=== PATIENT | female | born 1990 ===

== ENCOUNTER 2018-06-18 11:00 | Emergency (ER) | payer SELFPAY ==
[2018-06-18 11:16] VITALS: BMI 24.1
[2018-06-18] MEDS ORDERED: Lactated Ringer's 1,000 ML IV ONE (11:57)
[2018-06-18 12:13] LABS: SQUAMOUS EPITHIAL 1 /hpf (0-5); URINE BACTERIA RARE (<OCC); URINE BILIRUBIN NEGATIVE (NEGATIVE); URINE BLOOD NEGATIVE (NEGATIVE); URINE CLARITY Clear (Clear); URINE COLOR Yellow (YELLOW); URINE GLUCOSE (UA) NORMAL (Normal); URINE LEUKOCYTE ESTERASE NEG Leu/uL (Negative); URINE PROTEIN NEGATIVE (NEGATIVE); URINE UROBILINOGEN NORMAL mg/dL (0.2-1.0)
[2018-06-18] MEDS ORDERED: Acetaminophen/Codeine elixir 120-12mg/5ml PO ONE (13:00)
[2018-06-18] MEDS ORDERED: Betamethasone Soluspan 30 mg/5mL Inj Susp IM ONE (13:50)
[2018-06-18 16:10] LABS: SPECIMEN COMMENT CLOUDY
[2018-06-18 18:50] VITALS: BP 94/60; PULSE 63
--- NOTE | 2018-06-18 21:33 | OBHP ---
Datetime: 06/18/2018 11:20 IP Adm Impression: , intrauterine IP Admit Plan: Observation/Evaluation Admit Comment, IP Provider: CC: Sharp lower abdominal pain HPI: Patient is a 27 year old female , with JUAN JOSE (07/25/18) as per first US and LMP (10/18/17), who presents to [facility] with complaint of lower abdominal pain that started at 7:30am, which she descri bes as a sharp constant pain. Patient admits to movement and denies any leakage of fluid, vagin al bleeding, trauma, recent sexual activity. care: [facility], Dr. 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 Ocassional contractions 2. NST Reactive 3. FFN done and sent to [facility] 4- UA negative 5. Probable RL pains and requested pain medication 6. Percocet # 1 given and pt ressolved D/c home with instructions to F/Up with Dr. Toribio soon. Will forward resut of FFN to Dr. Toribio Celestone injections given and will return in 24 hours for 2nd Celestone. Left in Stable and Satisfactory condition Extremities - PN: Normal Abdomen - PN: Normal Lungs - PN: Normal Heart - PN: Normal General - PN: Normal Comments, ACOG Physical Exam: Gen: NAD Cardio: RRR, +S1, + S2, no murmurs Pulm: CTA bilaterally Abdomen: Soft, Gravid, non-tender Extremities: No cyanosis, no edema and no clubbing EFM: 130, + acceleration TOCO: Irritability Gestation - Est Wks by US: 34.5 EGA AdmitDate IP: 34.5 Vital Signs Provider: Reviewed IP Chief Complaint: Other
== END 2018-06-18 13:46 | disposition home or self-care (01) ==
LOC: C.EROB 11:00
DX: O26.899 Other specified pregnancy related conditions, unspecified trimester (principal); Z3A.00 Weeks of gestation of pregnancy not specified; R10.30 Lower abdominal pain, unspecified
CPT/HCPCS: 81001; 82731; 96372; 99283; J0702; J7120

== ENCOUNTER 2018-06-19 13:08 | Emergency (ER) | payer SELFPAY ==
[2018-06-18 11:16] VITALS: BMI 24.1
[2018-06-19] MEDS ORDERED: Betamethasone Soluspan 30 mg/5mL Inj Susp IM ONE (13:40)
--- NOTE | 2018-06-19 18:32 | OBHP ---
Datetime: 06/19/2018 13:55 IP Adm Impression: , intrauterine IP Chief Complaint Other: second dose of celestone IP Admit Plan: Discharge home Admit Comment, IP Provider: 27 year old female at 34.6 weeks, with JUAN JOSE 07/25/18 per US and LM P 10/18/17, who presents to [facility] for second dose of celestone. Patient was here 24 hours ago with compl aint of lower abdominal pain and had (+)FFN yesterday. Patient's history also significant for one pre term at "8 months". Yesterday's abdominal pain has resolved. Patient endorses movement bu t not contractions at the moment. She denies vaginal bleeding, vaginal fluid, and abnormal discharge. She states she feels much better today overall. Denies chest pain, shortness of breath, nausea, vomi ting. Outpatient OBGYN: Dr. Toribio OB Hx: G1: , 6lbs 6oz, 2010, male, at "8 months"; patient states "I was one month early" G2: , 7lbs 6oz, 2012, female G3: Miscarriage, 3 weeks, 2016, no D_C done G4: Elective , July 2017. Office aspiration. G5: Current, unremarkable course Body Mechanic Hx: Menarche at 17 years old. Monthly cycles lasting 5-6 days, can be heavy or light. Denies H x of STI, abnormal pap smear, and fibroids. PMHx: Anemia PSHx: Denies FHx: Denies. Mother is 42 y/o and alive. She does not know her biological father. SocHx: Denies EtOH, tobacco and illicit drug use now and in the past. 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 Medications: PNV, iron supplement once a day, and unknown abx for gingivitis (has been taking it f or a week, given by the dentist). Allergies: NKDA vitals and physical exam: see above A/P: 27 year old female at 34.6 weeks presents again 24 hours later for second dose of korin estone due to concern for labor. FFN from yesterday's lab was positive and patient's history significant for labor. -2nd dose of celestone given, currently observing after the injection. If no adverse effects, alan fish is to be discharged home. -f/u with Dr. Toribio as outpatient routine OB case discussed with Dr. Rian Javier PGY1 Attending Note: patient seen, evaluated and reviewed by me with the Resident. I agree with the abo ve as documented. Patient observed after celestone administration; no adverse effects noted. [facility] has appointment 06/20/18. Discharged home in stable condition. Pelvic Type - PN: Adequate Extremities - PN: Normal Abdomen - PN: Normal Back - PN: Normal Breast - PN: Not Done Lungs - PN: Normal Heart - PN: Normal Thyroid - PN: Not Done Neurologic - PN: Not Done HEENT - PN: Not Done General - PN: Normal FHR - Baseline A Provider: 135 Contraction Comments Provider: none Comments, ACOG Physical Exam: fundal height at 34.5 cm. IP Hx Assessment: The History has been Reviewed and is Current EGA AdmitDate IP: 34.6 Vital Signs Provider: Reviewed; Within Normal Limits IP Chief Complaint: Other NICHD Variability Prov Fetus A: Moderate 6-25bpm NICHD Accel Fetus A IP Provider: [id number] FHR Category Provider Fetus A: Category I NICHD Decel Fetus A IP Provider: None Dilatation, Provider: 0 Effacement, Provider: 30 Station, Provider: high Genitourinary Exam: Normal DTRs - PN: Not Done
[2018-06-19 19:29] VITALS: BP 96/51; PULSE 80; RESP 20; TEMP 98.1; O2SAT 99
== END 2018-06-19 15:12 | disposition home or self-care (01) ==
LOC: C.EROB 13:08
DX: Z36.89 Encounter for other specified antenatal screening (principal)
CPT/HCPCS: 96372; J0702

== ENCOUNTER 2018-07-29 11:07 | Inpatient (IN) | payer MEDICAID ==
[2018-07-29 11:19] VITALS: BMI 26.6
[2018-07-29 12:49] LABS: BASO % 0.1 % (0.0-2.0); EOS # 0.1 K/uL (0.0-0.7); EOS % 0.9 % (0.0-4.0); HEMOGLOBIN 12.1 g/dL (11.0-16.0); LYMPH # 1.5 K/uL (1.0-4.3); LYMPH % 19.3 % (20.0-40.0); MEAN CORPUSCULAR HEMOGLOBIN 31.1 pg (27.0-31.0); MEAN CORPUSCULAR HGB CONC 33.6 g/dL (33.0-37.0); MEAN PLATELET VOLUME 8.7 fL (7.2-11.7); MONO # 0.5 K/uL (0.0-0.8); MONO % 6.2 % (0.0-10.0); NEUT # 5.5 K/uL (1.8-7.0); NEUT % 73.5 % (50.0-75.0); RBC 3.9 Mil/uL (3.80-5.20); RED CELL DISTRIBUTION WIDTH 16.9 % (11.5-14.5); WHITE BLOOD COUNT 7.5 K/uL (4.8-10.8)
[2018-07-29 12:50] LABS: MEAN CELL VOLUME 92.6 fL (81.0-99.0)
[2018-07-29 12:53] LABS: SQUAMOUS EPITHIAL 1 /hpf (0-5); URINE BILIRUBIN NEGATIVE (NEGATIVE); URINE BLOOD 2+ (NEGATIVE); URINE CLARITY Clear (Clear); URINE COLOR Yellow (YELLOW); URINE GLUCOSE (UA) NORMAL (Normal); URINE LEUKOCYTE ESTERASE TRACE Leu/uL (Negative); URINE PROTEIN NEGATIVE (NEGATIVE); URINE UROBILINOGEN NORMAL mg/dL (0.2-1.0)
[2018-07-29 13:00] LABS: BLOOD UREA NITROGEN 10 mg/dL (7-17); CALCIUM 8.6 mg/dl (8.6-10.4); GFR NON-AFRICAN AMERICAN > 60
[2018-07-29] MEDS ORDERED: Oxytocin 30 UNIT in NS 500 ml 30 UNITS/500 ML BAG IV ONE ×2 (13:01→17:19)
[2018-07-29] MEDS ORDERED: Lactated Ringer's 1,000 ML IV ONE (13:25)
[2018-07-29] MEDS ORDERED: Lactated Ringer's 1,000 ML IV SCH (13:30)
[2018-07-29] MEDS ORDERED: Fentanyl/Bupivacaine HCl 250 ML EPI ONE (13:31)
[2018-07-29] MEDS ORDERED: Oxycodone/Acetaminophen 5/325 mg Tab PO PRN (17:19)
[2018-07-29] MEDS ORDERED: Benzocaine/Menthol 20%-0.5% Topical Spray (60 ml) TOP PRN (17:19)
--- NOTE | 2018-07-29 17:54 | OBDS ---
DELIVERY PERSONNEL Delivery Doctor: Susana Tidwell DO Glass Melt Operator: Marc Kebede RN Anesthetist: Dr. Botello MATERNAL INFORMATION Delivery Anesthesia: Epidural Estimated Blood Loss (ml): 200 Placenta Cultured: No Maternal Complications: None Other Maternal Complications: late PNC Provider Comments: of a viable female from PRIETO position and over an intact perineum. HASMUKH M at time of delivery. Apgars 9_9 and BW 8lbs. Cord blood and cord pH obtained and sent Placenta manually delivered with 3 vessel cord and discarded EBL 200 mls Pitocin Infusion ordered and done Pt and tolerated the procedure well and remained in LDR room in S_S cndition Vaginal Delivery performed by myself with Janet Zapata, PGY 1 LABOR SUMMARY EDC: 07/25/2018 00:00 No. Babies in Womb: 1 Attempted: No Labor Anesthesia: Epidural LABOR INFORMATION Reason for Induction: Not Applicable Onset of Labor: 07/29/2018 11:00 Complete Dilatation: 07/29/2018 16:20 Oxytocin: N/A Group B Beta Strep: Negative Antibiotics # of Doses: 0 Steroids Given: Full Course; > 24 Hours before Delivery Reason Steroids Not Administered: Not Applicable MEMBRANES Membranes Rupture Method: Artificial Rupture of Membranes: 07/29/2018 17:03 Length of Rupture (hrs): 0.10 Amniotic Fluid Color: Clear Amniotic Fluid Amount: Moderate STAGES OF LABOR Stage 1 hrs: 5 Stage 1 min: 20 Stage 2 hrs: 0 Stage 2 min: 49 Stage 3 hrs: 0 Stage 3 min: 5 Total Time in Labor hrs: 6 Total Time in Labor min: 14 VAGINAL DELIVERY Episiotomy: None Laceration Extension: N/A Laceration Type: None Laceration Repair: Not Applicable Initial Vag Sponge Count: 20 Final Vag Sponge Count: 20 Initial Vag Sharps Count: 0 Final Vag Sharps Count: 0 Sponge Count Correct: Yes Sharps Count Correct: N/A BABY A INFORMATION Infant Delivery Date/Time: 07/29/2018 17:09 Method of Delivery: Vaginal Born in Route : No : N/A Forceps: N/A Vacuum Extraction: N/A Shoulder Dystocia : No SHOULDER DYSTOCIA BABY A Delivery Date/Time: 07/29/2018 17:09 PRESENTATION/POSITION BABY A Presentation: Cephalic Cephalic Presentation: Vertex Vertex Position: Left Occipital Anterior Breech Presentation: N/A PLACENTA INFORMATION BABY A Placenta Delivery Time : 07/29/2018 17:14 Placenta Method of Delivery: Spontaneous Placenta Status: Delivered SCORES BABY A Heart Rate 1 min: >100 bpm Resp Effort 1 min: Good Cry Reflex Irritability 1 min: Cough or Sneeze or Pulls Away Muscle Tone 1 min: Active Motion Color 1 min: Body [place], Extremities Blue Resuscitation Effort 1 min: Tactile Stimulation SCORE 1 MIN: 9 Heart Rate 5 min: >100 bpm Resp Effort 5 min: Good Cry Reflex Irritability 5 min: Cough or Sneeze or Pulls Away Muscle Tone 5 min: Active Motion Color 5 min: Body [place], Extremities Blue Resuscitation Effort 5 min: N/A SCORE 5 MIN: 9 INFANT INFORMATION BABY A Gestational Age at Delivery: 40.4 Gestational Status: Term Infant Outcome : Liveborn Infant Condition : Stable Infant Sex: Female IDENTIFICATION/MEDS BABY A ID Band Number: [id number] ID Band Location: Left Leg; Left Arm Sensor Applied: Yes Sensor Number: [id number] Sensor Location : Cord Clamp WEIGHT/LENGTH BABY A Infant Birthweight (gms): 3980 Infant Weight (lb): 8 Infant Weight (oz): 12 Infant Length Inches: 21.00 Length cms: 53.3 CORD INFORMATION BABY A No. Cord Vessels: 3 Nuchal Cord : N/A Cord Blood Taken: Yes Infant Suction: Mouth; Nose
[2018-07-30 08:06] LABS: BASO % 0.4 % (0.0-2.0); EOS # 0.1 K/uL (0.0-0.7); EOS % 0.8 % (0.0-4.0); LYMPH # 1.3 K/uL (1.0-4.3); LYMPH % 11.7 % (20.0-40.0); MEAN CELL VOLUME 92.6 fL (81.0-99.0); MEAN CORPUSCULAR HEMOGLOBIN 31.4 pg (27.0-31.0); MEAN CORPUSCULAR HGB CONC 33.9 g/dL (33.0-37.0); MEAN PLATELET VOLUME 8.5 fL (7.2-11.7); MONO # 0.8 K/uL (0.0-0.8); MONO % 6.9 % (0.0-10.0); NEUT # 8.7 K/uL (1.8-7.0); NEUT % 80.2 % (50.0-75.0); RBC 3.82 Mil/uL (3.80-5.20); RED CELL DISTRIBUTION WIDTH 16.9 % (11.5-14.5); WHITE BLOOD COUNT 10.8 K/uL (4.8-10.8)
--- NOTE | 2018-07-30 21:39 | OBPPN ---
Datetime: 07/30/2018 09:55 PP Pain Prov: Within normal limits PP Nausea Prov: Denies PP Flatus Prov: Yes PP BM Prov: No PP Heart Prov: Normal PP Lungs Prov: Normal PP Abdomen/Uterus Prov: Normal PP CVA Tenderness Prov: Normal PP Extremities Prov: Normal PP Progress Prov: Normal PP Comments Phys Exam Prov: PP Impression Prov: Normal progression PP Plan Prov: Continue present management PP Progress Note Prov: Patient seen and examined at bedside. Pt is PP day # 1 s/p . Pt is 3. Patient reports feeling well, minimal pain (2/10), some vaginal bleeding (<1 pad per 5 hours). Pt reports tolerating diet and drinking approximately 5 pitchers of water per day. Patient breast feedin g baby with no issues and has started to ambulate. Denies headaches, vision changes, chest pain, SOB, nausea, vomiting, dysuria, hematuria. Vitals BP 87/57 HR 79 Temp 97.3 Cardio: S1, S2, RR Resp: CTAL B/L Abd: soft, non tender, + bowel sounds : fundal height 1 finger above umbilical LE: No edema 28 year old female , PP #2, s/p patient doing well; stable H/H, asymptomatic - continue PO water hydration - continue to ambulate - continue pain management per orders - breastfeed q2-3 hours Vital Signs Provider PP: Reviewed; Within Normal Limits
[2018-07-31 08:02] VITALS: BP 109/80; PULSE 67; TEMP 97; O2SAT 100
--- NOTE | 2018-07-31 19:43 | OBDCSUM ---
Datetime: 07/31/2018 12:22 Discharged to, Provider: Home Follow up at, Provider: [facility] Disch Instr Activity: Normal activity; May Shower Disch Instr Diet: Regular Discharge Instructions, Provider: Routine instructions given Discharge Diagnosis, Provider: Postterm Discharge Time: 07/31/2018 13:00 Follow up in weeks, Provider: 4-6 weeks Disch Referrals: None Contraception discussed, Prov: Yes Disch Activity Restrictions: No exercising; Minimize stair-climbing; No sexual activity; Nothing in vagina - [place], tampons, douche Discharge Comment, Provider: PPD # 2 S/P without complications Stable and Satisfactory condition and recovery D/C home with instructions and Rx for Motrin and Colace Advised to continue pelvic rest Will continue PNV daily x 4-6 months Contraception after Delivery: Undecided Datetime: 06/19/2018 14:57 Follow up at, Provider: [facility] Disch Instr Activity: Normal activity; May be up to bathroom; May be up for meals; May Shower Discharge Instructions, Provider: Specific instructions as noted Discharge Diagnosis, Provider: Term Delivered Follow up in weeks, Provider: 4-6 weeks Disch Activity Restrictions: No sexual activity; Nothing in vagina - [place], tampons, douche Discharge Comment, Provider: 28 F s/p pp #2. Pt seen and examined at bedside. Pt report s minimal pain, ambulating well, minor vaginal bleeding (1 pad about 4-5 hrs), tolerating PO H20 hydr ation, reports bowel movement _ flatulence. Denies chest pain, SOB, N/V, F/C, constipation Vitals - WNL Cardio: S1, S2 Resp: CTAL B/L Contraception after Delivery: Undecided
[2018-07-31 19:54] VITALS: RESP 18
== END 2018-07-31 14:00 | disposition home or self-care (01) | DRG 373 ==
LOC: C.EROB 11:07 → C.4D 12:00 → EEVIPCON 12:00 → C.4M 20:00
PROVIDERS: ADMIT Obstetrics & Gynecology; ATTEND Obstetrics & Gynecology
PROC: 10E0XZZ Delivery of Products of Conception, External Approach (ICD-10-PCS; principal; 2018-07-29)
PROC: 3E033VJ Introduction of Other Hormone into Peripheral Vein, Percutaneous Approach (ICD-10-PCS; 2018-07-29)
PROC: 10907ZC Drainage of Amniotic Fluid, Therapeutic from Products of Conception, Via Natural or Artificial Opening (ICD-10-PCS; 2018-07-29)
DX: O48.0 Post-term pregnancy (principal); Z37.0 Single live birth